=== PATIENT | male | born 1930 | race Caucasian/White ===

== ENCOUNTER 2017-03-06 11:10 | Inpatient (IN) | payer MEDICARE, BC ==
[2017-03-05 14:21] LABS: HEMATOCRIT 39.2 % (40.0-51.0); HEMOGLOBIN 13.1 g/dL (13.6-17.8)
[2017-03-05 14:38] LABS: CALCIUM, SERUM 8.9 MG/DL (8.5-10.4); CHLORIDE, SERUM 106 MMOL/L (96-112); CO2 (CARBON DIOXIDE) 28 MMOL/L (24-34); CREATININE 0.97 MG/DL (0.70-1.30); GFR AFRICAN AMERICAN 82 ML/MIN (>=60); GFR NON AFRICAN AMERICAN 71 ML/MIN (>=60); GLUCOSE, SERUM 106 MG/DL (60-99); POTASSIUM, SERUM 4.4 MMOL/L (3.5-5.3); SODIUM, SERUM 143 MMOL/L (135-148)
[2017-03-05 14:40] LABS: BUN (BLOOD UREA NITROGEN) 18 MG/DL (6-23)
--- NOTE | ~2017-03-06 | OP ---
Record Of Operation [facility] [address] [place]. [address] NAME: NISHI DRAKE JR : 32 STATUS : ADM IN PAT#: [id number] AGE: 86 ADM/REG DATE : 03/06/17 MR#: [id number] REPORT SERV DATE: 03/06/17 DICTATED BY: TAVO RICHARDS DATE: 03/06/17 REPORT STATUS : Draft TRANSCRIBED BY: MODLori DATE: 03/06/17 DATE OF PROCEDURE: 03/06/2017 PREOPERATIVE DIAGNOSIS: Greater than 80% left internal carotid artery stenosis. POSTOPERATIVE DIAGNOSIS: Greater than 80% left internal carotid artery stenosis. PROCEDURES: 1. Left carotid endarterectomy with intraoperative shunt placement and primary repair. 2. Completion ultrasound. SURGEON: Tavo Richards M.D. VOICE DATA COMMUNICATIONS ENGINEER: Saud. ANESTHESIA: General endotracheal. ESTIMATED BLOOD LOSS: 200 mL. SPECIMEN: Plaque. DRAINS: Round 15 Po to the left neck. COMPLICATIONS: None. INDICATION: Mr. Drake is a pleasant 86-year-old man recently discovered to have high- grade left carotid stenosis on carotid ultrasound, confirmed to be greater than 80% on CT angiogram. Fortunately, he has been asymptomatic from a stroke standpoint. Risks, benefits, and alternatives of carotid endarterectomy were discussed. The patient elected to proceed for stroke prevention. DETAILS OF PROCEDURE: After informed consent was obtained, the patient was brought to the operating room and placed in supine position. After administration of anesthesia, he was intubated. A shoulder roll was placed. He was prepped and draped in usual sterile fashion. A time-out was performed. I commenced the procedure with left anterior sternocleidomastoid incision. I dissected down through the platysma and subcutaneous tissues with cautery. I identified the facial vein, ligated proximally and distally, and divided. However, the carotid was directly behind the jugular, almost posterior to it. As a result, at that point, I proceeded with a retro jugular approach to the carotid. The internal jugular vein was mobilized medially. The vagus and hypoglossal nerves were identified and preserved. I encircled the internal and external carotid arteries with a vessel loop. We systemically heparinized with 5000 units of IV heparin. I then encircled the common carotid artery with an umbilical tape. After allowing the heparin time to circulate, I clamped first the internal carotid followed by the common carotid, then the external carotid artery. I performed arteriotomy with 11 blade and extended proximally and distally with Wang scissors. There was dense both calcific and soft plaque throughout the distal common Record Of Operation [facility] [address] [place]. [address] NAME: NISHI DRAKE JR : 32 STATUS : ADM IN PAT#: [id number] AGE: 86 ADM/REG DATE : 03/06/17 MR#: [id number] REPORT SERV DATE: 03/06/17 DICTATED BY: TAVO RICHARDS DATE: 03/06/17 REPORT STATUS : Draft TRANSCRIBED BY: MODLori DATE: 03/06/17 carotid artery at the bifurcation of the internal carotid artery. There was a focal area of high-grade stenosis in the internal carotid artery 80% or greater. There was no thrombus or ulceration. The arteries, particularly the internal carotid artery was quite large. After that, I placed a 14-[place] shunt first distally into the internal carotid artery, then proximally into the common carotid artery. There was strongly pulsatile backbleeding from the internal carotid artery. Once the shunt was in place and secured with Rumel tourniquet, extensive endarterectomies of the distal common carotid artery at the bifurcation of the internal carotid artery were performed. The plaque feathered to a beautiful distal endpoint in the internal carotid artery. The proximal endpoint was cut and flushed with Wang scissors. I also performed eversion endarterectomy of the external carotid artery. Plaque was passed off the table as a specimen. After that, all remaining loose debris was removed. I irrigated with heparinized saline. Given the large caliber of the vessel, primary closure was undertaken rather than patch angioplasty with running 5-0 Prolene. Prior to completing suture line, shunt was removed. I forward flushed and back flushed, and reclamped the arteries. I then completed the suture line. Flow was then restored from the common to the external carotid artery leaving the internal clamp for several more seconds for further flushing. After that, the internal clamp was removed. The artery was obviously pulsatile. Suture line was hemostatic. I examined the proximal and distal end points with a hand-held ultrasound. There was no free flap or floating debris. No velocity elevations or turbulent flow. Normal Doppler signals were appreciated in all three vessels. After that, we ensured hemostasis. We irrigated with sterile saline. We then placed a round 15 Po drain by the vessel and brought it out the inferior portion of the incision. I secured the skin with 2-0 nylon. After that, the platysma layer was closed with running 2-0 Vicryl. The skin was closed with running 4-0 Monocryl. Dermabond was applied. Drain was hooked to bulb suction. The patient tolerated the procedure well with no complications. I was present for this entire case as dictated. While still in the operating room, he was allowed to awaken from anesthesia. He followed commands and moved all four extremities symmetrically. MONIQUE/JETT Tavo Richards M.D. / [id number] CC: Robert Cassidy M.D. Brian Negus, M.D. Stanley Ireland, M.D.
[~2017-03-06 11:10] MED LIST: ASAB PO; CALCIUM PO; HALF81 PO; JOINT ADVANTAGE GOLD; JOINT ADVANTAGE PO; LOP25 PO; MAGOX4 PO; NITROSTAT0.4 MG SL; NO HOME MEDS; PLAVIX PO; PRAVAC PO; RED YEAS1 OR; VIT COMPLEX PO; VITC500 PO; [UNRECOGNIZED DRUG - OTHER]; [UNRECOGNIZED DRUG - OTHER]; [UNRECOGNIZED DRUG - OTHER]; [UNRECOGNIZED DRUG - OTHER] PO
[2017-03-07 04:23] LABS: BASOPHILS 0.1 %; BASOPHILS ABSOLUTE 0.01 10/3/uL (0.0-0.16); EOSINOPHILS 0.1 %; EOSINOPHILS ABSOLUTE 0.01 10/3/uL (0.0-0.53); HEMATOCRIT 36.3 % (40.0-51.0); HEMOGLOBIN 12.1 g/dL (13.6-17.8); IMMATURE GRANULOCYTES 0.1 %; IMMATURE GRANULOCYTES ABSOLUTE 0.01 10/3/uL (0.0-0.11); LYMPHOCYTES ABSOLUTE 0.56 10/3/uL (0.67-4.30); MEAN CORPUS HGB CONC 33.3 g/dL (32.0-36.0); MEAN CORPUSCULAR HEMOGLOB 30.2 pg (26.0-34.0); MEAN CORPUSCULAR VOLUME 90.5 fL (80-100); MEAN PLATELET VOLUME 10.1 fL (9.2-13.0); MONOCYTES 6.3 %; MONOCYTES ABSOLUTE 0.44 10/3/uL (0.21-1.20); NEUTROPHILS 85.4 %; NEUTROPHILS ABSOLUTE 5.94 10/3/uL (2.02-8.40); RBC DISTRIBUTION WIDTH 12.8 % (12.0-16.0); RED CELL COUNT 4.01 10/6/uL (4.7-6.1)
[2017-03-07 04:24] LABS: MANUAL DIFF NO %; PLATELET COUNT 230 10/3/uL (150-400)
[2017-03-07 04:38] LABS: BUN (BLOOD UREA NITROGEN) 15 MG/DL (6-23); CALCIUM, SERUM 8.5 MG/DL (8.5-10.4); CHLORIDE, SERUM 107 MMOL/L (96-112); CO2 (CARBON DIOXIDE) 27 MMOL/L (24-34); GFR AFRICAN AMERICAN 79 ML/MIN (>=60); GFR NON AFRICAN AMERICAN 68 ML/MIN (>=60); POTASSIUM, SERUM 4.7 MMOL/L (3.5-5.3); SODIUM, SERUM 142 MMOL/L (135-148)
[2017-03-07 04:39] LABS: GLUCOSE, SERUM 134 MG/DL (60-99)
[2017-03-07] MEDS ORDERED: NORCO1 TA1 PO (13:10)
== END 2017-03-07 14:47 | disposition home or self-care (01) | DRG 39 ==
LOC: SDC/OF 11:10 → PACU 16:54 → CCU 17:52
PROVIDERS: Surgery
PROC: B344ZZ3 Ultrasonography of Left Common Carotid Artery, Intravascular (ICD-10-PCS; 2017-03-06)
PROC: 03CL0Z6 (ICD-10-PCS; principal; 2017-03-06 14:00)
DX: I65.23 Occlusion and stenosis of bilateral carotid arteries (principal); J44.9 Chronic obstructive pulmonary disease, unspecified; Z95.1 Presence of aortocoronary bypass graft; I25.10 Atherosclerotic heart disease of native coronary artery without angina pectoris; E78.5 Hyperlipidemia, unspecified; M19.90 Unspecified osteoarthritis, unspecified site; K21.9 Gastro-esophageal reflux disease without esophagitis; I25.2 Old myocardial infarction; Z80.1 Family history of malignant neoplasm of trachea, bronchus and lung; Z80.3 Family history of malignant neoplasm of breast; Z82.49 Family history of ischemic heart disease and other diseases of the circulatory system; Z98.890 Other specified postprocedural states
CPT/HCPCS: 80048; 83735; 84100; 85014; 85018; 85025; 87641; 88304; 93005; A9270-GY; J0690; J2370; J2405; J2710; J3010